=== PATIENT | male | born 1960 | race Caucasian/White ===

== ENCOUNTER 2016-09-20 14:09 | Emergency (ER) | payer SELFPAY ==
[~2016-09-20] VITALS: Ht 177.8 cm; Wt 81.2 kg
[~2016-09-20 14:09] MED LIST: ACET-1256 PO; ATEN-173 PO; LSN20 PO; SENNTAB23 PO
[2016-09-20 14:13] VITALS: TEMP 36.7
[2016-09-20] MEDS ORDERED: MECLIZINE HCL 25 MG TAB PO STA (14:20)
[2016-09-20] MEDS ORDERED: SODIUM CHLORIDE 0.9% 500ML 500 ML IV STA (14:20)
[2016-09-20] MEDS ORDERED: SODIUM CHLORIDE 0.9% 1000ML 1,000 ML IV STA (14:20)
--- NOTE | 2016-09-20 14:28 | EMERGENCY ROOM VISIT NOTE ---
History Report prepared by Romeo: Hannah Wooten Under the Supervision of: Dr. Paddy Boudreaux M.D. First contact with patient: 14:14 Chief Complaint: DIZZY Stated Complaint: DIZZY Nursing Triage Summary: Triage note: pt reports "i feel off balance and trouble walking since approx 0130 i went to get out of bed and fell against a dresser and i am having trouble focusing." History of Present Illness The patient is a 55 year old male who presents to the Emergency Room with complaints of persistent dizziness starting 0130 last night (13 hours ago). He got up to go to the bathroom and felt off balance. He was staggering and felt like he was trying to walk while intoxicated. He does not feel like the room is spinning. He feels the dizziness when he turns his head or changes positions. He notes trouble focusing his vision and experiences nausea at times. He reports neck pain for the past 6 months. He denies any weakness, urinary symptoms, vomiting or headache. He denies any recent head injury. He has diarrhea which is normal for him as he has a history of diverticulitis. He denies any history of vertigo. Source of History: patient Onset: 13 hours ago Position: other (global) Quality: other (dizziness) Timing: other (persistent) Modifying Factors (Worsening): movement Associated Symptoms: + nausea, + neck pain, No headache, No urinary symptoms , No vomiting, No weakness Note: Pt reports vision changes. Review of Systems See HPI for pertinent positives & negatives. A total of 10 systems reviewed and were otherwise negative. Past Medical & Surgical Medical Problems: (1) HTN (hypertension) (2) No known allergies Family History Cancer Diabetes mellitus FHx: lung disease Hypertension Kidney disease Kidney stones Social History Smoking Status: Current Every Day Smoker Alcohol Use: occasionally Marital Status: Housing Status: lives with family Occupation Status: employed Current/Historical Medications Scheduled Acetaminophen (Tylenol), 1,000 MG PO DIRECTED Atenolol (Tenormin), 25 MG PO DAILY Lisinopril (Lisinopril), 20 MG PO DAILY Scheduled PRN Meclizine HCl (Meclizine HCl), 1-2 TAB PO Q8 PRN for Dizziness or Vertigo Allergies Coded Allergies: No Known Allergies (Unverified , 09/20/16) Physical Exam Vital Signs Date Time Temp Pulse Resp B/P Pulse Ox O2 Delivery O2 Flow Rate FiO2 09/20/16 16:35 72 18 151/81 96 Room Air 09/20/16 16:00 65 16 127/69 96 Room Air 09/20/16 15:45 63 16 127/77 95 Room Air 09/20/16 15:30 78 18 127/73 95 Room Air 09/20/16 15:15 58 16 126/73 95 Room Air 09/20/16 14:59 67 14 128/73 95 Room Air 09/20/16 14:58 95 Room Air 09/20/16 14:57 71 09/20/16 14:43 69 19 125/73 95 09/20/16 14:13 36.7 82 18 139/93 96 Room Air Physical Exam GENERAL: Patient is in no acute distress. HEENT: No acute trauma, normocephalic atraumatic, mucous membranes moist, no nasal congestion, no scleral icterus. No nystagmus. NECK: No stridor, no adenopathy, no meningismus, trachea is midline. LUNGS: Clear to auscultation bilaterally, no wheeze, no rhonchi, breath sounds equal. HEART: Without murmurs gallops or rubs, regular rate and rhythm. ABDOMEN: Soft, nontender, bowel sounds positive, no hernias, no peritonitis. EXTREMITIES: No cyanosis or edema, full range of motion of all the joints without pain or difficulty, no signs for acute trauma. NEUROLOGIC: Oriented x 3, no acute motor or sensory deficits, no focal weakness. No cerebellar dysfunction or pronator drift. SKIN: No rash, no jaundice, no diaphoresis. Medical Decision & Procedures ER Provider Diagnostic Interpretation: Radiology results as stated below per my review and radiologist interpretation: CT ANGIOGRAM OF THE BRAIN; CT ANGIOGRAM OF THE NECK CLINICAL HISTORY: Dizziness. COMPARISON STUDY: CT scan of the brain performed concurrently on 09/20/2016. TECHNIQUE: Following the IV administration of 116 of Optiray 320, CT angiogram of the head and neck was performed from the aortic arch to the vertex. Images are reviewed in the axial, sagittal, and coronal planes. 3-D MIPS images are created and assessed. IV contrast was administered without complication. All measurements were calculated based on NASCET criteria. FINDINGS: Brain parenchyma: The brain parenchyma is normal in appearance. There is no hemorrhage, mass effect, or evidence of acute territorial ischemia by CT criteria. There is no evidence of enhancing mass lesion on these angiogram phase images. The ventricles, sulci, and cisterns are normal in configuration. Thoracic aorta: There is mild atherosclerotic calcification of the imaged thoracic aorta. Visualized portions of the thoracic aorta are normal in caliber. The aortic arch demonstrates standard 3-vessel anatomy. Right carotid arterial system: The right common carotid artery is widely patent, as are the right internal and terminal carotid arteries. Atherosclerotic plaque and calcification is noted in the carotid bulb. Left carotid arterial system: The left common carotid artery is widely patent, as are the left internal and external carotid arteries. Vertebral arteries: The vertebral arteries are widely patent and codominant. Subclavian arteries: Widely patent bilaterally. Intracranial vasculature: The internal carotid arteries at the skull base are widely patent, as are the anterior and middle cerebral arteries. The vertebrobasilar system and posterior cerebral arteries are widely patent. The vertebral arteries are codominant. There is no aneurysm, high-grade stenosis, or focal vessel cut off seen throughout the intracranial circulation. Jugular veins: Widely patent bilaterally. Dural sinuses: Patent as visualized. Lung apices: Advanced emphysema is noted at the lung apices. Partially visualized upper lobe lung parenchyma appears clear. Soft tissues: The visualized pharyngeal soft tissues are normal in appearance noting angiographic phase technique. The oropharyngeal airway appears widely patent. The salivary and thyroid glands are normal in appearance. No cervical lymphadenopathy is seen. Skeletal structures: The calvarium appears intact. The cervical spine is within normal limits. Sinuses and mastoids: There is trace mucosal thickening in the right frontal sinus and the maxillary antra. The remaining paranasal sinuses are clear. The mastoid air cells are well pneumatized. Dentition: There is a large periapical lucency identified involving a left maxillary molar with cortical breakthrough. Numerous dental caries are identified. IMPRESSION: 1. No acute intracranial abnormality. 2. Unremarkable CT angiogram of the brain. 3. Unremarkable CT angiogram of the neck. 4. Advanced emphysema. 5. There is a large periapical lucency involving a left maxillary molar with associated cortical breakthrough. Additionally, numerous dental caries are identified. Follow-up with dentistry is recommended. Electronically signed by: Paddy Cramer M.D. 09/20/2016 4:41 PM Dictated Date/Time: 09/20/2016 4:[address] HEAD WITHOUT CONTRAST (CT) CLINICAL HISTORY: Stroke DIZZINESS COMPARISON STUDY: No previous studies for comparison. TECHNIQUE: Axial CT of the brain is performed from the vertex to the skull base. IV contrast was not administered for this examination. CT DOSE: 1242.20 mGy.cm FINDINGS: No intra or extra-axial mass lesions are visualized. There is no CT evidence of acute cortical infarction. There is no evidence of midline shift. There is no acute hemorrhage. No calvarial fractures are visualized. There is no evidence of pathologic ventricular dilatation. There is no evidence of acute sinusitis. There is minor mucosal thickening within the right maxillary and ethmoid sinuses. IMPRESSION: No acute intracranial findings Electronically signed by: Pollo Peralta M.D. 09/20/2016 4:31 PM Dictated Date/Time: 09/20/2016 4:30 PM Laboratory Results 09/20/16 14:40 Red Blood Count 5.27, Mean Corpuscular Volume 91.7, Mean Corpuscular Hemoglobin 32.1, Mean Corpuscular Hemoglobin Concent 35.0, Mean Platelet Volume 9.3, Neutrophils (%) (Auto) 67.5, Lymphocytes (%) (Auto) 21.8, Monocytes (%) (Auto) 9.7, Eosinophils (%) (Auto) 0.6, Basophils (%) (Auto) 0.2, Neutrophils # (Auto) 9.05, Lymphocytes # (Auto) 2.93, Monocytes # (Auto) 1.30, Eosinophils # (Auto) 0.08, Basophils # (Auto) 0.03 09/20/16 14:40 Test 09/20/16 14:40 09/20/16 16:30 White Blood Count 13.42 K/uL (4.8-10.8) Red Blood Count 5.27 M/uL (4.7-6.1) Hemoglobin 16.9 g/dL (14.0-18.0) Hematocrit 48.3 % (42-52) Mean Corpuscular Volume 91.7 fL (80-100) Mean Corpuscular Hemoglobin 32.1 pg (25-34) Mean Corpuscular Hemoglobin Concent 35.0 g/dl (32-36) Platelet Count 251 K/uL (130-400) Mean Platelet Volume 9.3 fL (7.4-10.4) Neutrophils (%) (Auto) 67.5 % Lymphocytes (%) (Auto) 21.8 % Monocytes (%) (Auto) 9.7 % Eosinophils (%) (Auto) 0.6 % Basophils (%) (Auto) 0.2 % Neutrophils # (Auto) 9.05 K/uL (1.4-6.5) Lymphocytes # (Auto) 2.93 K/uL (1.2-3.4) Monocytes # (Auto) 1.30 K/uL (0.11-0.59) Eosinophils # (Auto) 0.08 K/uL (0-0.5) Basophils # (Auto) 0.03 K/uL (0-0.2) RDW Standard Deviation 45.7 fL (36.4-46.3) RDW Coefficient of Variation 13.5 % (11.5-14.5) Immature Granulocyte % (Auto) 0.2 % Immature Granulocyte # (Auto) 0.03 K/uL (0.00-0.02) Prothrombin Time 10.3 SECONDS (9.0-12.0) Prothromb Time International Ratio 1.0 (0.9-1.1) Activated Partial Thromboplast Time 27.9 SECONDS (21.0-31.0) Partial Thromboplastin Ratio 1.1 Anion Gap 6.0 mmol/L (3-11) Est Creatinine Clear Calc Drug Dose 111.7 ml/min Estimated GFR () 118.8 Estimated GFR (Non- 102.5 BUN/Creatinine Ratio 16.2 (10-20) Calcium Level 8.6 mg/dl (8.5-10.1) Troponin I < 0.015 ng/ml (0-0.045) Urine Color YELLOW Urine Appearance CLEAR (CLEAR) Urine pH 7.0 (4.5-7.5) Urine Specific [place] 1.023 (1.000-1.030) Urine Protein NEG (NEG) Urine Glucose (UA) NEG (NEG) Urine Ketones NEG (NEG) Urine Occult Blood NEG (NEG) Urine Nitrite NEG (NEG) Urine Bilirubin NEG (NEG) Urine Urobilinogen NEG (NEG) Urine Leukocyte Esterase NEG (NEG) Laboratory results reviewed by me. Medications Administered Medications (Trade) Dose Ordered Sig/Riley Route Start Time Stop Time Status Last Admin Dose Admin Sodium Chloride 500 ml @ 999 mls/hr Q31M STAT IV 09/20/16 14:20 09/20/16 14:50 DC 5/16/17 14:53 999 MLS/HR Sodium Chloride (Nss 1000ml) 1,000 ml @ 125 mls/hr Q8H STAT IV 09/20/16 14:20 09/20/16 22:19 09/20/16 14:53 125 MLS/HR Meclizine HCl (Antivert Tab) 25 mg NOW STAT PO 09/20/16 14:20 09/20/16 14:22 DC 09/20/16 14:52 25 MG ECG Indication: other (dizziness) Rate (beats per minute): 65 Rhythm: normal sinus Findings: no acute ischemic change, no ectopy ED Course 1415: The patient was evaluated in room A12. A complete history and physical exam was performed. 1420: Meclizine HCl 25 mg PO, NSS 1000 ml @ 125 mls/hr IV, NSS 500 ml @ 999 mls/ hr IV. 1646: I reevaluated the patient. He is doing well. I discussed the results and treatment plan with him. He verbalized understanding and agreement. He will be discharged home. Medical Decision Differential diagnosis: vertigo, stroke, intracranial bleeding, dehydration, infection, electrolyte imbalance, anemia. There was no anemia. There was a mild leukocytosis which could be consistent with infection or with the stress of the situation. Urinalysis does not show infection or hematuria. EKG shows a sinus rhythm, no acute ischemia. Cardiac enzyme testing times one is not consistent with acute cardiac injury. There was no coagulopathy. Brain CT shows no acute bleed or mass effect. CT angiography of the brain and neck do not show evidence for aneurysm or for carotid narrowing or for carotid dissection. Renal panel testing does not show dehydration, there was no evidence for renal failure or for significant electrolyte abnormality. On exam, the patient had no focal neurologic deficits. Stroke scale was 0. The patient received IV saline and oral meclizine, he is doing better than earlier. The patient likely has vertigo, I talked to him about options. He would like to be discharged home. Rest, hydration were encouraged. I will prescribe some meclizine for symptom control. If symptoms worsen, he can return. The patient was encouraged to follow with his doctors office later this week. Impression Primary Impression: Dizziness Additional Impression: Vertigo Scribe Attestation The scribe's documentation has been prepared under my direction and personally reviewed by me in its entirety. I confirm that the note above accurately reflects all work, treatment, procedures, and medical decision making performed by me. Departure Information Dispostion Home / Self-Care Prescriptions Meclizine HCl (Meclizine HCl) 25 Mg Tab 1-2 TAB PO Q8 Y for Dizziness or Vertigo, #15 TABS Prov: Paddy Boudreaux M.D. 09/20/16 Referrals No Doctor, Assigned (PCP) Forms HOME CARE DOCUMENTATION FORM, IMPORTANT VISIT INFORMATION Patient Instructions My [facility] Additional Instructions meclizine 1-2 tab every 8 hours for vertigo rest fluids return if worsening see dianelys rashid this week imaging and testing today was all ok Problem Qualifiers
[2016-09-20 14:53] VITALS: Ht 177.8 cm; Wt 81.2 kg
[2016-09-20 14:53] LABS: BASO % 0.2 %; BASO ABS # 0.03 K/uL (0-0.2); COMPLETE YES; EOS % 0.6 %; HEMATOCRIT 48.3 % (42-52); IG% 0.2 %; LYMPH % 21.8 %; LYMPH ABS # 2.93 K/uL (1.2-3.4); MEAN CELL VOLUME 91.7 fL (80-100); MEAN CORPUSCULAR HEMOGLOBIN 32.1 pg (25-34); MEAN PLATELET VOLUME 9.3 fL (7.4-10.4); MONO % 9.7 %; NEUT % 67.5 %; PLATELET COUNT 251 K/uL (130-400); RED BLOOD COUNT 5.27 M/uL (4.7-6.1); WHITE BLOOD COUNT 13.42 K/uL (4.8-10.8)
[2016-09-20 14:58] VITALS: O2SAT 95
[2016-09-20 15:02] LABS: PARTIAL THROMBOPLASTIN RATIO 1.1; PROTHROMBIN TIME (PATIENT) 10.3 SECONDS (9.0-12.0)
[2016-09-20 15:09] LABS: BLOOD UREA NITROGEN 13 mg/dl (7-18); BUN/CREATININE RATIO 16.2 (10-20); CALCIUM 8.6 mg/dl (8.5-10.1); CARBON DIOXIDE 28 mmol/L (21-32); CHLORIDE 107 mmol/L (98-107); CREATININE 0.79 mg/dl (0.60-1.40); GLUCOSE 106 mg/dl (70-99); POTASSIUM 3.6 mmol/L (3.5-5.1); SODIUM 141 mmol/L (136-145)
--- NOTE | 2016-09-20 16:32 | DIAGNOSTIC IMAGING REPORT ---
CT HEAD WITHOUT CONTRAST (CT) CLINICAL HISTORY: Stroke DIZZINESS COMPARISON STUDY: No previous studies for comparison. TECHNIQUE: Axial CT of the brain is performed from the vertex to the skull base. IV contrast was not administered for this examination. CT DOSE: 1242.20 mGy.cm FINDINGS: No intra or extra-axial mass lesions are visualized. There is no CT evidence of acute cortical infarction. There is no evidence of midline shift. There is no acute hemorrhage. No calvarial fractures are visualized. There is no evidence of pathologic ventricular dilatation. There is no evidence of acute sinusitis. There is minor mucosal thickening within the right maxillary and ethmoid sinuses. IMPRESSION: No acute intracranial findings Electronically signed by: Pollo Peralta M.D. 09/20/2016 4:31 PM Dictated Date/Time: 09/20/2016 4:30 PM
--- NOTE | 2016-09-20 16:43 | DIAGNOSTIC IMAGING REPORT ---
CT ANGIOGRAM OF THE BRAIN; CT ANGIOGRAM OF THE NECK CLINICAL HISTORY: Dizziness. COMPARISON STUDY: CT scan of the brain performed concurrently on 09/20/2016. TECHNIQUE: Following the IV administration of 116 of Optiray 320, CT angiogram of the head and neck was performed from the aortic arch to the vertex. Images are reviewed in the axial, sagittal, and coronal planes. 3-D MIPS images are created and assessed. IV contrast was administered without complication. All measurements were calculated based on NASCET criteria. FINDINGS: Brain parenchyma: The brain parenchyma is normal in appearance. There is no hemorrhage, mass effect, or evidence of acute territorial ischemia by CT criteria. There is no evidence of enhancing mass lesion on these angiogram phase images. The ventricles, sulci, and cisterns are normal in configuration. Thoracic aorta: There is mild atherosclerotic calcification of the imaged thoracic aorta. Visualized portions of the thoracic aorta are normal in caliber. The aortic arch demonstrates standard 3-vessel anatomy. Right carotid arterial system: The right common carotid artery is widely patent, as are the right internal and terminal carotid arteries. Atherosclerotic plaque and calcification is noted in the carotid bulb. Left carotid arterial system: The left common carotid artery is widely patent, as are the left internal and external carotid arteries. Vertebral arteries: The vertebral arteries are widely patent and codominant. Subclavian arteries: Widely patent bilaterally. Intracranial vasculature: The internal carotid arteries at the skull base are widely patent, as are the anterior and middle cerebral arteries. The vertebrobasilar system and posterior cerebral arteries are widely patent. The vertebral arteries are codominant. There is no aneurysm, high-grade stenosis, or focal vessel cut off seen throughout the intracranial circulation. Jugular veins: Widely patent bilaterally. Dural sinuses: Patent as visualized. Lung apices: Advanced emphysema is noted at the lung apices. Partially visualized upper lobe lung parenchyma appears clear. Soft tissues: The visualized pharyngeal soft tissues are normal in appearance noting angiographic phase technique. The oropharyngeal airway appears widely patent. The salivary and thyroid glands are normal in appearance. No cervical lymphadenopathy is seen. Skeletal structures: The calvarium appears intact. The cervical spine is within normal limits. Sinuses and mastoids: There is trace mucosal thickening in the right frontal sinus and the maxillary antra. The remaining paranasal sinuses are clear. The mastoid air cells are well pneumatized. Dentition: There is a large periapical lucency identified involving a left maxillary molar with cortical breakthrough. Numerous dental caries are identified. IMPRESSION: 1. No acute intracranial abnormality. 2. Unremarkable CT angiogram of the brain. 3. Unremarkable CT angiogram of the neck. 4. Advanced emphysema. 5. There is a large periapical lucency involving a left maxillary molar with associated cortical breakthrough. Additionally, numerous dental caries are identified. Follow-up with dentistry is recommended. Electronically signed by: Paddy Cramer M.D. 09/20/2016 4:41 PM Dictated Date/Time: 09/20/2016 4:30 PM
[2016-09-20 16:44] LABS: URINE APPEARANCE CLEAR (CLEAR); URINE BILIRUBIN NEG (NEG); URINE COLOR YELLOW; URINE NITRITE NEG (NEG); URINE SPECIFIC GRAVITY 1.023 (1.000-1.030); UROBILINOGEN NEG (NEG); ZZUR CULT IF INDIC CLEAN CATCH NO
[2016-09-20 16:49] LABS: MANUAL MICROSCOPIC REQUIRED? NO; REVIEW REQ? NO
[2016-09-20] MEDS ORDERED: ANT25 PO (16:54)
[2016-09-20 17:01] VITALS: BP 143/86; PULSE 67; O2SAT 98
== END 2016-09-20 17:15 | disposition home or self-care (01) ==
LOC: C.EDB 14:10 → C.EDA 17:15
DX: R42 Dizziness and giddiness (principal); I10 Essential (primary) hypertension; F17.200 Nicotine dependence, unspecified, uncomplicated; Z79.899 Other long term (current) drug therapy; Z80.9 Family history of malignant neoplasm, unspecified; Z83.3 Family history of diabetes mellitus; Z82.49 Family history of ischemic heart disease and other diseases of the circulatory system; Z84.1 Family history of disorders of kidney and ureter